=== PATIENT | male | born 1965 | race Caucasian/White ===

== ENCOUNTER 2017-10-18 19:37 | Emergency (ER) | payer MEDICAID ==
[~2017-10-18] VITALS: Ht 175.3 cm; Wt 63.5 kg
[2017-10-18 19:41] VITALS: BP 140/97
[2017-10-18] MEDS ORDERED: KETOROLAC 30 MG/ML VIAL IM ONE (20:25)
[2017-10-18 20:44] VITALS: BP 130/88
== END 2017-10-18 20:44 | disposition home or self-care (01) ==
LOC: MED 19:37
DX: M25.461 Effusion, right knee (principal); I10 Essential (primary) hypertension; F17.200 Nicotine dependence, unspecified, uncomplicated
CPT/HCPCS: 29505; 73562; 96372; 99284; J1885